=== PATIENT | male | born 1975 | race Caucasian/White ===

== ENCOUNTER 2017-02-15 14:20 | Observation (INO) | payer SELFPAY ==
[2017-02-15] MEDS ORDERED: Naloxone* 0.4 MG/ML 1 ML VIAL IV ONE (14:32)
[2017-02-15] MEDS ORDERED: Ondansetron INJ* 2 MG/ML VIAL IV ONE (14:36)
[2017-02-15] MEDS: NS 0.9% 1000 ML* 3,000 ML IV ONE ×2 (15:05→15:52)
[2017-02-15] MEDS ORDERED: Naloxone* 0.4 MG/ML 1 ML VIAL ONE (15:09)
--- NOTE | 2017-02-15 15:28 | RAD ---
Indication: Unresponsive. Possible overdose. Comparison: None. Technique: Noncontrast CT vertex of skull through foramen magnum. Report: The sulci, ventricles, and basal cisterns are normal for age. Tobar matter white matter differentiation is preserved without evidence for edema. No intra or extra axial hemorrhage, mass, or fluid collection detected. Unremarkable visualized orbital contents. Unremarkable calvarium and skull base. Unremarkable scalp. Mild retained secretions at the RIGHT sphenoid sinus. Negative for paranasal sinus fluid levels within the [id number]. Clear visualized mastoid air spaces. IMPRESSION: Negative unenhanced CT of the brain. No evidence for traumatic injury or acute intracranial process.
--- NOTE | 2017-02-15 15:38 | RAD ---
Indication: Unresponsive. Cardiac arrest/overdose. Comparison: None. Technique: Upright AP 1458 hours Report: Mild prominence of the interstitial markings. Mild linear subsegmental atelectasis at the mid to lower lung zones. Negative for pleural effusion or pneumothorax. The heart, pulmonary vasculature, and mediastinal contours are unremarkable. Negative for free air beneath the diaphragm. IMPRESSION: Mild bilateral subsegmental atelectasis.
[2017-02-15 15:44] LABS: Hematocrit 49 % (42-52); Hemoglobin 16.5 g/dl (14.0-18.0); Mean Corpuscular HGB Conc 34 g/dl (31-36); Mean Corpuscular Hemoglobin 31 pg (27-31); Mean Corpuscular Volume 93 fL (80-94); Mean Platelet Volume 9 um3 (7.4-10.4); Red Blood Count 5.29 10^6/ul (4.0-5.4); Red Cell Distribution Width 13 % (10.5-15)
[2017-02-15 15:48] LABS: FIO2 5
[2017-02-15 15:51] LABS: PCO2 Arterial 45 mmHg (35-45)
[2017-02-15 15:53] LABS: Urine Bacteria 1+ (Absent); Urine Bilirubin Negative (Negative); Urine Glucose 3+(>=500 mg/dL) (Negative); Urine Nitrite Positive (Negative)
[2017-02-15 15:54] LABS: ALT 66 U/L (7-52); AST 59 U/L (13-39); Albumin 4.3 g/dL (3.2-5.2); Alkaline Phosphatase 66 U/L (34-104); Anion Gap 8 mmol/L (2-11); BUN/Creatinine Ratio 12.5 (8-20); Blood Urea Nitrogen 14 mg/dL (6-24); CO2 Carbon Dioxide 28 mmol/L (22-32); Calcium 9.2 mg/dL (8.6-10.3); Chloride 98 mmol/L (101-111); Creatine Kinase 601 U/L (10-223); EGFR African American 93.4 (>60); EGFR Non-African American 72.6 (>60); Globulin 3.4 g/dL (2-4); Glucose 95 mg/dL (70-100); Sodium 134 mmol/L (133-145); Total Protein 7.7 g/dL (6.4-8.9)
[2017-02-15 15:57] LABS: Troponin I 0.04 ng/mL (<0.04)
[2017-02-15] MEDS ORDERED: Piperac/Tazob 3.375 gm in NS* 3.375 GM/100 ML BAG IVPB ONE (16:00)
[2017-02-15] MEDS ORDERED: Naloxone* 0.4 MG/ML 1 ML VIAL IV PUSH ONE (16:06)
[2017-02-15 16:17] LABS: Acetaminophen < 15 mcg/mL; Alcohol < 10 mg/dL (<10); Salicylate < 2.50 mg/dL (<30)
[2017-02-15 16:50] LABS: Benzodiazepine Urine Screen Presumptive Positive (None Detect)
[2017-02-15] MEDS ORDERED: NALOXONE DRIP for Opiate Reversal - ED ONLY IV SCH ×4 (17:00→17:10)
[2017-02-15] MEDS ORDERED: NS 0.9% 1000 ML* 1,000 ML IV SCH (17:00)
[2017-02-15 17:06] LABS: Magnesium 2.1 mg/dL (1.9-2.7)
[2017-02-15 17:17] LABS: TSH (Thyroid Stimulating Horm) 0.94 mcIU/mL (0.34-5.60)
[2017-02-15] MEDS ORDERED: Acetaminophen TAB* 325 MG PO PRN (18:38)
--- NOTE | 2017-02-15 19:00 | HP ---
HISTORY AND PHYSICAL: DATE OF ADMISSION: 02/15/17 PRIMARY CARE PHYSICIAN: Dr. Arthur Barry. CHIEF COMPLAINT: Overdose. HISTORY OF PRESENT ILLNESS: The patient is a 41-year-old gentleman, who was brought in by EMS after they were called and found him unresponsive at the scene. Apparently, the patient's girlfriend said that he has a history of opiate abuse, but at that point, did not think he had taken any recently. The patient did receive Narcan in the field. Totally, 4 mg of two separate 2 mg doses. The patient did become responsive at that point. The patient required supplemental oxygen as he apparently was saturating 86% on room air and when he was placed on a non-rebreather, it went up to 96%. Pupils were pinpoint at that time. At the time with EMS, the patient was unable to recall anything. Here in the ED, again, the patient does not recall anything, but he does admit to taking Lortab for pain that he gets off the street. He does not recall what happened earlier today. He said he has had some chest pain that is reproducible with a cough, but he thought it was from allergies. He says his body does tend to ache all over and that is why he takes the Lortab. In the ED , the patient was evaluated and his urine was positive for opiates, benzos, cocaine, and marijuana. The patient is being admitted to the ICU with a Narcan drip. PAST MEDICAL HISTORY: He says he has no significant past medical history. MEDICATIONS: He is currently on no medications except the Lortab he takes over the counter. ALLERGIES: He says he has allergies/adverse reaction to IVP DYE and MACRODANTIN. FAMILY HISTORY: Mother is alive at 63. He is unable to tell me what medical problems she has as he falls asleep during half of the conversation. Father is alive at 65, has diabetes and mitral valve prolapse. SOCIAL HISTORY: No tobacco. Drinks alcohol every few days, but cannot tell me what type he drinks. The recreational drugs, he says he takes the Lortab for pain, but he is also positive for marijuana and cocaine. He owns a [employer] company. His girlfriend is Fernanda Veras. He has one 9-year-old child of his own. REVIEW OF SYSTEMS: Unable to fully obtain from the patient as he falls asleep too quickly in the middle of conversation. PHYSICAL EXAMINATION GENERAL: Pleasant gentleman, lying in bed, arousable. VITAL SIGNS: Temperature is 98.3 degrees, heart rate 109 beats per minute, respiratory rate 19 breaths per minute, pulse ox 97%, blood pressure 159/102. HEENT: Normocephalic, atraumatic. Pupils equal, round, reactive to light. Moist mucous membranes. NECK: Supple. No JVD, bruits, palpable thyroid, or lymphadenopathy. CHEST: Clear to auscultation and percussion bilaterally. CARDIOVASCULAR: S1, S2 appreciated. Increased rate, regular rhythm. ABDOMEN: Positive bowel sounds in all 4 quadrants. Soft, nontender, nondistended. EXTREMITIES: No cyanosis, clubbing, or edema. +2 peripheral pulses bilaterally. NEURO: He is alert and oriented x3 when aroused, but falls asleep easily. Moves all extremities. DIAGNOSTIC STUDIES/LAB DATA: His white count is 10, his hemoglobin is 16.5, hematocrit 49, platelets are 194. His sodium is 134, potassium 4.0, chloride 98 , CO2 28, BUN 14, creat 1.12, glucose is 95, lactic acid 2.2. Troponin 0.04. His blood gas shows a pH of 7.33, PCO2 of 45, PO2 of 49. His UA is positive for leukocyte esterase, white blood cells, rbc's, bacteria, and glucose. Again , note his urine tox is positive for opiates, benzos, cocaine, and marijuana. Brain CT shows negative unenhanced CT of the brain. No evidence for traumatic injury or acute intracranial process. Chest x-ray was interpreted by Radiology as mild bibasilar subsegmental atelectasis. EKG shows sinus tachycardia, 106 beats per minute, normal axis, nonspecific ST- T wave changes. ASSESSMENT AND PLAN: 1. Overdose likely of narcotics, although he did have cocaine in his system and his trop is slightly elevated. We will admit the patient to ICU, place on Narcan drip, do serial trops on the patient as well. On my anticipation, will wake up in the near future with the Narcan. He is oxygenating satisfactorily at this time and appears to be ventilating as well. At this juncture, it appears to be accidental as the patient is any intent to harm himself. I will check lactic acid in the morning; this is slightly elevated, but I am not overly concerned. 2. DVT prophylaxis. Heparin subcu. 3. FEN. N.p.o. Normal saline 100 cc an hour until the patient is awake enough to eat. 4. The patient is a full code. TIME SPENT: Over 80 minutes was spent on this H and P, more than 45 minutes of which was spent in direct [id number] contact with the patient in evaluation, physical exam, counseling, and coordination of care. CC: Dr. Arthur Barry* [id number]/CPS #: [id number] ANDI
[2017-02-15] MEDS ORDERED: Ibuprofen TAB* 400 MG PO PRN (20:46)
--- NOTE | 2017-02-15 20:55 | ED ---
I, Oh,Soohyun, scribed for Bernard Gaytan MD on 02/15/17 at 1502 . Substance Abuse/Use - HPI Summary HPI Summary: This 41 y/o male presents to ED via ambulance for respiratory arrest and unspecified OD today. Pt was found down on ground outside around shed by his and son. [id number], CPR, and bag given by , who is reported to be ICU nurse. reports downtime of anywhere between 15 and 30 minutes. Pt was noted with respiratory arrest at time of initial encounter with EMS. Fixed and pin-point pupils noted by EMS. Narcan 2 mg PO without change. Narcan 2 m IV was given, and pt regained consciousness. Tachcardia with 120s HR is noted. At time of initial evaluation pt c/o CP and rectal pain. Noted with active n/v. He denies possession of any pain medications or pain substance abuse at this moment. PMHx includes Lortab OD. - History Of Current Complaint Stated Complaint: CARDIAC ARREST /OVERDOSE Hx Obtained From: Patient, EMS, Medical Records Timing Of Abuse: Binge Use Character: Stuporous Alleviating Factor(s): Medication - Narcan 2 mg PO and 2 mg IV. Associated Signs And Symptoms: Chest Pain, Diaphoretic, Nausea, Vomiting - Allergies/Home Medications Allergies/Adverse Reactions: Allergies Allergy/AdvReac Type Severity Reaction Status Date / Time Nitrofurantoin Allergy micheal burdickfarhad Verified 02/15/17 17:49 [From Macrodantin] ing contrast dye Allergy Swelling Uncoded 02/15/17 17:49 PMH/Surg Hx/FS Hx/Imm Hx Psychiatric History: Reports: Other Psychiatric Issues/Disorders - OD on Lortab Infectious Disease History: Reports: Hx Hepatitis - Family History Known Family History: Positive: Hypertension, Diabetes - Social History Alcohol Use: Occasionally Hx Substance Use: Yes Substance Use Type: Reports: Marijuana Hx Tobacco Use: Yes Smoking Status (MU): Former Smoker Review of Systems Positive: Skin Diaphoresis. Negative: Fever Positive: Chest Pain Positive: Other - Respiratory arrest at scene, currently resolved after narcan 2 mg IV. Positive: Vomiting, Nausea, Other - positive rectal pain Neurological: Other - Positive for disorientation All Other Systems Reviewed And Are Negative: Yes Physical Exam - Summary Physical Exam Summary: The patient is well-nourished in no acute distress and in no acute pain. The skin is diaphoretic. Red tracking bianca on left AC cubital fossa. HEENT: The head is normocephalic and atraumatic. The pupils are equal and reactive. The conjunctivae are clear and without drainage. Nares are patent and without drainage. Mouth reveals moist mucous membranes and the throat is without erythema and exudate. The external ears are intact. The ear canals are patent and without drainage. The tympanic membranes are intact. Pupil fixed and pin point 1-2 mm. 4 mm upon re-examiation. No hematympanic. No moreno sign or racoon eyes. Neck is supple with full range of motion and non-tender. There are no carotid bruits. There is no neck vein distension. Respiratory: Chest is non-tender. Lungs are clear to auscultation and breath sounds are symmetrical and equal. Cardiovascular: Heart is regular rate and rhythm. Tachy. There is no murmur or rub auscultated. There is no peripheral edema and pulses are symmetrical and equal. 2 seconds capillary refills. Abdomen: The abdomen is obese, nontender. There are normal bowel sounds heard in all four quadrants and there is no organomegaly palpated. Musculoskeletal: There is no back pain noted. Extremities are non-tender with full range of motion. There is good capillary refill with 2 second return. There is no peripheral edema or calf tenderness elicited. No reproducible pain at back. Neurological: Patient is alert and disoriented and confused. Positive general motor weakness and pt has to sit up with assistance. Psychiatric: The patient has an appropriate affect and does not exhibit any anxiety or depression. Triage Information Reviewed: Yes Vital Signs On Initial Exam: Initial Vitals Temp Pulse Resp BP Pulse Ox 98.3 F 110 20 141/94 95 02/15/17 14:24 02/15/17 14:24 02/15/17 14:24 02/15/17 14:24 02/15/17 14:24 Vital Signs Reviewed: Yes Diagnostics - Vital Signs Vital Signs Temp Pulse Resp BP Pulse Ox 02/15/17 16:34 149/98 02/15/17 16:23 105 14 96 02/15/17 16:00 105 16 94 02/15/17 14:43 105 15 165/89 96 02/15/17 14:26 26 02/15/17 14:25 141/94 02/15/17 14:24 98.3 F 110 20 141/94 95 - Laboratory Lab Results: Lab Results 02/15/17 02/15/17 02/15/17 Range/Units 15:25 15:30 15:30 WBC 10.0 (3.5-10.8) 10^3/ul RBC 5.29 (4.0-5.4) 10^6/ul Hgb 16.5 (14.0-18.0) g/dl Hct 49 (42-52) % MCV 93 (80-94) fL MCH 31 (27-31) pg MCHC 34 (31-36) g/dl RDW 13 (10.5-15) % Plt Count 194 (150-450) 10^3/ul MPV 9 (7.4-10.4) um3 Neut % (Auto) 82.4 (38-83) % Lymph % (Auto) 10.8 L (25-47) % Wilkin % (Auto) 5.6 (1-9) % Eos % (Auto) 0.9 (0-6) % Baso % (Auto) 0.3 (0-2) % Absolute Neuts (auto) 8.3 H (1.5-7.7) 10^3/ul Absolute Lymphs (auto) 1.1 (1.0-4.8) 10^3/ul Absolute Monos (auto) 0.6 (0-0.8) 10^3/ul Absolute Eos (auto) 0.1 (0-0.6) 10^3/ul Absolute Basos (auto) 0 (0-0.2) 10^3/ul Absolute Nucleated RBC 0 10^3/ul Nucleated RBC % 0 INR (Anticoag Therapy) (0.89-1.11) Patient Temperature ABG pH (7.35-7.45) ABG pCO2 (35-45) mmHg ABG pO2 (80-100) mmHg ABG HCO3 (19-31) mmol/L ABG O2 Saturation (95-98) % ABG Base Excess (-2.0-2.0) Respiration Rate O2 Delivery Device Ventilator Type Vent Mode FiO2 Inspiratory Time PEEP Pressure Support Pressure Control EPAP IPAP BiPAP Sodium 134 (133-145) mmol/L Potassium 4.0 (3.5-5.0) mmol/L Chloride 98 L (101-111) mmol/L Carbon Dioxide 28 (22-32) mmol/L Anion Gap 8 (2-11) mmol/L BUN 14 (6-24) mg/dL Creatinine 1.12 (0.67-1.17) mg/dL Est GFR ( Amer) 93.4 (>60) Est GFR (Non-Af Amer) 72.6 (>60) BUN/Creatinine Ratio 12.5 (8-20) Glucose 95 (70-100) mg/dL Lactic Acid (0.5-2.0) mmol/L Calcium 9.2 (8.6-10.3) mg/dL Magnesium 2.1 (1.9-2.7) mg/dL Total Bilirubin 0.90 (0.2-1.0) mg/dL AST 59 H (13-39) U/L ALT 66 H (7-52) U/L Alkaline Phosphatase 66 (34-104) U/L Total Creatine Kinase 601 H (10-223) U/L Troponin I 0.04 H* (<0.04) ng/mL Total Protein 7.7 (6.4-8.9) g/dL Albumin 4.3 (3.2-5.2) g/dL Globulin 3.4 (2-4) g/dL Albumin/Globulin Ratio 1.3 (1-3) TSH 0.94 (0.34-5.60) mcIU/mL Urine Color Yellow Urine Appearance Cloudy Urine pH 5.0 (5-9) Ur Specific [place] 1.017 (1.010-1.030) Urine Protein 2+(100 mg/dl) H (Negative) Urine Ketones Trace H (Negative) Urine Blood 2+ H (Negative) Urine Nitrate Positive H (Negative) Urine Bilirubin Negative (Negative) Urine Urobilinogen Negative (Negative) Ur Leukocyte Esterase 3+ H (Negative) Urine WBC (Auto) 3+(>20/hpf) H (Absent) Urine RBC (Auto) 2+(6-10/hpf) H (Absent) Ur Squamous Epith Cells Present H (Absent) Urine Bacteria 1+ H (Absent) Urine Glucose 3+(>=500 mg/dl) H (Negative) Salicylates < 2.50 (<30) mg/dL Urine Opiates Screen (None Detect) Acetaminophen < 15 mcg/mL Ur Barbiturates Screen (None Detect) Ur Phencyclidine Scrn (None Detect) Ur Amphetamines Screen (None Detect) U Benzodiazepines Scrn (None Detect) Urine Cocaine Screen (None Detect) U Cannabinoids Screen (None Detect) Serum Alcohol < 10 (<10) mg/dL 02/15/17 02/15/17 02/15/17 Range/Units 15:30 15:30 15:40 WBC (3.5-10.8) 10^3/ul RBC (4.0-5.4) 10^6/ul Hgb (14.0-18.0) g/dl Hct (42-52) % MCV (80-94) fL MCH (27-31) pg MCHC (31-36) g/dl RDW (10.5-15) % Plt Count (150-450) 10^3/ul MPV (7.4-10.4) um3 Neut % (Auto) (38-83) % Lymph % (Auto) (25-47) % Wilkin % (Auto) (1-9) % Eos % (Auto) (0-6) % Baso % (Auto) (0-2) % Absolute Neuts (auto) (1.5-7.7) 10^3/ul Absolute Lymphs (auto) (1.0-4.8) 10^3/ul Absolute Monos (auto) (0-0.8) 10^3/ul Absolute Eos (auto) (0-0.6) 10^3/ul Absolute Basos (auto) (0-0.2) 10^3/ul Absolute Nucleated RBC 10^3/ul Nucleated RBC % INR (Anticoag Therapy) 0.98 (0.89-1.11) Patient Temperature Not Reportable ABG pH 7.33 L (7.35-7.45) ABG pCO2 45 (35-45) mmHg ABG pO2 49 L* (80-100) mmHg ABG HCO3 22.6 (19-31) mmol/L ABG O2 Saturation 88.8 L (95-98) % ABG Base Excess -2.5 L (-2.0-2.0) Respiration Rate Not Reportable O2 Delivery Device nasal cannula Ventilator Type Not Reportable Vent Mode Not Reportable FiO2 5 Inspiratory Time Not Reportable PEEP Not Reportable Pressure Support Not Reportable Pressure Control Not Reportable EPAP Not Reportable IPAP Not Reportable BiPAP Not Reportable Sodium (133-145) mmol/L Potassium (3.5-5.0) mmol/L Chloride (101-111) mmol/L Carbon Dioxide (22-32) mmol/L Anion Gap (2-11) mmol/L BUN (6-24) mg/dL Creatinine (0.67-1.17) mg/dL Est GFR ( Amer) (>60) Est GFR (Non-Af Amer) (>60) BUN/Creatinine Ratio (8-20) Glucose (70-100) mg/dL Lactic Acid 2.2 H* (0.5-2.0) mmol/L Calcium (8.6-10.3) mg/dL Magnesium (1.9-2.7) mg/dL Total Bilirubin (0.2-1.0) mg/dL AST (13-39) U/L ALT (7-52) U/L Alkaline Phosphatase (34-104) U/L Total Creatine Kinase (10-223) U/L Troponin I (<0.04) ng/mL Total Protein (6.4-8.9) g/dL Albumin (3.2-5.2) g/dL Globulin (2-4) g/dL Albumin/Globulin Ratio (1-3) TSH (0.34-5.60) mcIU/mL Urine Color Urine Appearance Urine pH (5-9) Ur Specific [place] (1.010-1.030) Urine Protein (Negative) Urine Ketones (Negative) Urine Blood (Negative) Urine Nitrate (Negative) Urine Bilirubin (Negative) Urine Urobilinogen (Negative) Ur Leukocyte Esterase (Negative) Urine WBC (Auto) (Absent) Urine RBC (Auto) (Absent) Ur Squamous Epith Cells (Absent) Urine Bacteria (Absent) Urine Glucose (Negative) Salicylates (<30) mg/dL Urine Opiates Screen (None Detect) Acetaminophen mcg/mL Ur Barbiturates Screen (None Detect) Ur Phencyclidine Scrn (None Detect) Ur Amphetamines Screen (None Detect) U Benzodiazepines Scrn (None Detect) Urine Cocaine Screen (None Detect) U Cannabinoids Screen (None Detect) Serum Alcohol (<10) mg/dL 02/15/17 Range/Units 16:20 WBC (3.5-10.8) 10^3/ul RBC (4.0-5.4) 10^6/ul Hgb (14.0-18.0) g/dl Hct (42-52) % MCV (80-94) fL MCH (27-31) pg MCHC (31-36) g/dl RDW (10.5-15) % Plt Count (150-450) 10^3/ul MPV (7.4-10.4) um3 Neut % (Auto) (38-83) % Lymph % (Auto) (25-47) % Wilkin % (Auto) (1-9) % Eos % (Auto) (0-6) % Baso % (Auto) (0-2) % Absolute Neuts (auto) (1.5-7.7) 10^3/ul Absolute Lymphs (auto) (1.0-4.8) 10^3/ul Absolute Monos (auto) (0-0.8) 10^3/ul Absolute Eos (auto) (0-0.6) 10^3/ul Absolute Basos (auto) (0-0.2) 10^3/ul Absolute Nucleated RBC 10^3/ul Nucleated RBC % INR (Anticoag Therapy) (0.89-1.11) Patient Temperature ABG pH (7.35-7.45) ABG pCO2 (35-45) mmHg ABG pO2 (80-100) mmHg ABG HCO3 (19-31) mmol/L ABG O2 Saturation (95-98) % ABG Base Excess (-2.0-2.0) Respiration Rate O2 Delivery Device Ventilator Type Vent Mode FiO2 Inspiratory Time PEEP Pressure Support Pressure Control EPAP IPAP BiPAP Sodium (133-145) mmol/L Potassium (3.5-5.0) mmol/L Chloride (101-111) mmol/L Carbon Dioxide (22-32) mmol/L Anion Gap (2-11) mmol/L BUN (6-24) mg/dL Creatinine (0.67-1.17) mg/dL Est GFR ( Amer) (>60) Est GFR (Non-Af Amer) (>60) BUN/Creatinine Ratio (8-20) Glucose (70-100) mg/dL Lactic Acid (0.5-2.0) mmol/L Calcium (8.6-10.3) mg/dL Magnesium (1.9-2.7) mg/dL Total Bilirubin (0.2-1.0) mg/dL AST (13-39) U/L ALT (7-52) U/L Alkaline Phosphatase (34-104) U/L Total Creatine Kinase (10-223) U/L Troponin I (<0.04) ng/mL Total Protein (6.4-8.9) g/dL Albumin (3.2-5.2) g/dL Globulin (2-4) g/dL Albumin/Globulin Ratio (1-3) TSH (0.34-5.60) mcIU/mL Urine Color Urine Appearance Urine pH (5-9) Ur Specific [place] (1.010-1.030) Urine Protein (Negative) Urine Ketones (Negative) Urine Blood (Negative) Urine Nitrate (Negative) Urine Bilirubin (Negative) Urine Urobilinogen (Negative) Ur Leukocyte Esterase (Negative) Urine WBC (Auto) (Absent) Urine RBC (Auto) (Absent) Ur Squamous Epith Cells (Absent) Urine Bacteria (Absent) Urine Glucose (Negative) Salicylates (<30) mg/dL Urine Opiates Screen Presumptive positive H (None Detect) Acetaminophen mcg/mL Ur Barbiturates Screen None detected (None Detect) Ur Phencyclidine Scrn None detected (None Detect) Ur Amphetamines Screen None detected (None Detect) U Benzodiazepines Scrn Presumptive positive H (None Detect) Urine Cocaine Screen Presumptive positive H (None Detect) U Cannabinoids Screen Presumptive positive H (None Detect) Serum Alcohol (<10) mg/dL Result Diagrams: 02/15/17 15:30 02/15/17 15:30 Lab Statement: Any lab studies that have been ordered have been reviewed, and results considered in the medical decision making process. - Radiology CXR Xray Interpretation: Positive (See Comments) - Mild bilateral subsegmental atelectasis. Radiology Interpretation Completed By: Radiologist - CT Brain CT Interpretation: No Acute Changes CT Interpretation Completed By: Radiologist - EKG 1430 Cardiac Rate: Tachycardia - 106 bpm EKG Rhythm: Sinus Tachycardia EKG Interpretation: Nonspecific ST changes Re-Evaluation - Re-Evaluation First Eval Re-Evaluation Time: 15:35 Comment: Dr. Gaytan in room to re-evaluate pt. Pt is still noted with decreased oxygen sat. Second Eval Re-Evaluation Time: 15:55 Comment: Dr. Gaytan in room to re-examine pt's lung sound. No rales, crackles, or stridors. Pt is currently denying any CP or SOB, appears to be sleeping and comfortable. Course/Dx - Course Assessment/Plan: This 41 y/o male presents to ED via ambulance for likely OD and respiroratory arrest this afternoon. Pt was found down on lawn by his son and right by his shed. reports downtime of anywhere between 15 mintues and 30 minutes. Mouth to mouth administered by . Pt was noted with respiratory arrest at scene but regained consciousness after Narcan 2 mg PO and then Narcan 2 mg IV, and was noted with pin-point pupils, diaphoresis, and n/v. Pt c/o chest pain and SOB at time of initial evaluation. CXR and Brain CT are negative, but pt is noted with unstable O2 sat. ABG pO2 of 49, trop of 0.04, and lactic acid of 2.2 are noted. Aspiration and PE are being considered. Narcan IV drip is ordered. Hospitalist was consulted, who accepts the pt's admission. - Diagnoses Differential Diagnosis/HQI/PQRI: Positive: Drug Abuse, Metabolic Disorder, Other - cocaine abuse, Provider Diagnoses: Aspiration pneumonia, Narcotic overdose - Physician Notifications Discussed Care Of Patient With: Pharmacy at [address] Cavanaugh (Hospitlaist) at 1615 PM - Critical Care Time Critical Care Time: 30-74 min - 45 minutes Discharge - Discharge Plan Condition: Stable Disposition: ADMITTED TO [facility] documentation as recorded by the Angel sorto Soohyun accurately reflects the service I personally performed and the decisions made by me, Bernard Gaytan MD.
[2017-02-15] MEDS: NALOXONE DRIP for Opiate Reversal - ED ONLY IV SCH ×2 (21:14)
[2017-02-15] MEDS: Heparin VIAL(*) 5000 UNITS/ML VIAL (FIVE THOUSAND) SUBCUT SCH (21:37)
[2017-02-15] MEDS: Piperac/Tazob 3.375 gm in NS* 3.375 GM/100 ML BAG IVPB SCH (21:37)
[2017-02-16] MEDS: Heparin VIAL(*) 5000 UNITS/ML VIAL (FIVE THOUSAND) SUBCUT SCH (06:32)
[2017-02-16] MEDS: Piperac/Tazob 3.375 gm in NS* 3.375 GM/100 ML BAG IVPB SCH (06:34)
[2017-02-16 06:59] LABS: Hematocrit 41 % (42-52); Hemoglobin 13.7 g/dl (14.0-18.0); Mean Corpuscular HGB Conc 34 g/dl (31-36); Mean Corpuscular Hemoglobin 32 pg (27-31); Mean Corpuscular Volume 94 fL (80-94); Mean Platelet Volume 9 um3 (7.4-10.4); Red Blood Count 4.33 10^6/ul (4.0-5.4); Red Cell Distribution Width 13 % (10.5-15); White Blood Count 9.7 10^3/ul (3.5-10.8)
[2017-02-16 07:37] LABS: Calcium 7.9 mg/dL (8.6-10.3); EGFR African American 86.2 (>60); EGFR Non-African American 67.1 (>60); Potassium 3.9 mmol/L (3.5-5.0)
[2017-02-16] MEDS: NALOXONE DRIP for Opiate Reversal - ED ONLY IV SCH ×2 (08:02)
[2017-02-16 10:56] VITALS: BP 109/58
--- NOTE | 2017-02-17 01:41 | DS ---
DISCHARGE SUMMARY: DATE OF ADMISSION: 02/15/17 DATE OF DISCHARGE: 02/16/17 PRIMARY CARE PROVIDER: Arthur Barry MD DISCHARGING PROVIDER: BENTON Be SUPERVISING PHYSICIAN: Karen Sibley MD * (DICTATED BY BENTON BE) PRIMARY DISCHARGE DIAGNOSES: 1. Unintentional opioid overdose. 2. Polysubstance abuse. DISCHARGE MEDICATIONS: None. MEDICATION CHANGES: None. HOSPITAL IMAGIN. CT of the brain shows no acute intracranial process. 2. Chest x-ray shows mild bilateral subsegmental atelectasis. 3. EKG shows sinus tachycardia with a rate of 106. HOSPITAL COURSE: This is a 41-year-old gentleman who is otherwise healthy, who presented to the emergency department unresponsive. He had been celebrating his 's birthday and had a very large republican at his house. He states that he had been consuming large quantities of alcohol for a couple of days and had consumed Lortab, Klonopin, cocaine, and powdered fentanyl. He states that he generally consumes alcohol on a daily basis, occasionally only a couple of bears but recently his volume has been increasing. He qualifies himself mostly as a binge drinker and has been identifying his drinking as a problem. In regards to his substance abuse, he states that this is occasional and generally associated with social events. He has no history of prior overdoses. He states that this was unintentional and he did not realize that it was fentanyl that he had taken at the time of ingestion. He was found unresponsive by a family member and subsequently transported to the emergency department. The patient responded to multiple doses of Narcan, but remained somewhat sedated and was subsequently admitted to the ICU with a Narcan drip. Overnight, the patient's level of alertness returned back to baseline. He demonstrated no signs of alcohol withdrawal. The patient reported otherwise feeling well and ready for discharge. The patient as stated above has recognized his substance use as a problem and he has started seeing a counselor on a weekly basis that does have experience with substance abuse. He states that he had already discussed with his counselor that tomorrow, which is actually his birthday, [birth year], was his planned first day of sobriety. He feels that the events of last night has confirmed for him the need for him to take a serious look at his substance use. Offered consultation with social work and referral to outpatient rehab, which the patient declined as he feels that he has the resources necessary through his counselor. DISPOSITION: The patient is being discharged to home. Recommend followup with his primary care provider regarding this hospitalization and continue to see his counselor regularly to help support him in his rehab efforts. The patient is interested in more information on appropriate nutrition to improve his health and he has goals to try to replace his alcohol and substance abuse with exercise. The patient received information for the [facility] to help with that. BENTON BE CC: Arthur Barry MD * [id number]/CPS #: [id number] MTDD
== END 2017-02-16 14:21 | disposition home or self-care (01) ==
LOC: ED 14:20 → INTOOBSV 16:53 → ICU 16:53
PROVIDERS: ADMIT Internal Medicine; ATTEND Hospitalist
DX: T40.4X1A Poisoning by other synthetic narcotics, accidental (unintentional), initial encounter (principal); Y92.9 Unspecified place or not applicable; F19.10 Other psychoactive substance abuse, uncomplicated; F10.10 Alcohol abuse, uncomplicated; R09.2 Respiratory arrest; R07.9 Chest pain, unspecified; Z88.8 Allergy status to other drugs, medicaments and biological substances; Z79.899 Other long term (current) drug therapy
CPT/HCPCS: 36415; 36600; 70450; 71010; 80048; 80053; 80307; 80320; 80329; 81003; 81015; 82550; 82803; 83605; 83735; 84443; 84484; 85025; 85610; 87040; 87086; 87641; 93005; 96365; 96372; 96375; 96376; 99291; A9270-GY; G0378; G0480; J1644; J2310; J2405; J2543